=== PATIENT | female | born 1940 | race Caucasian/White ===

== ENCOUNTER 2017-10-17 16:13 | Inpatient (IN) | payer MEDICARE ==
[~2017-10-17] VITALS: Ht 177.8 cm; Wt 85.2 kg
[2017-10-17] VITALS (10 sets, daily range): BP systolic 119–162; BP diastolic 63–79; PULSE 64–128; RESP 16–22; TEMP 98.2–98.3; O2SAT 95–100
[2017-10-17 16:54] LABS: AUTOMATED NEUTROPHIL # 3.6 TH/MM3 (1.8-7.7); BASOPHIL % 0.5 % (0.0-2.0); EOSINOPHIL # 0.1 TH/MM3 (0-0.4); EOSINOPHIL % 2.1 % (0.0-4.0); HEMATOCRIT 41.8 % (35.0-46.0); HEMO FLAGS DIFF FINAL; LYMPH % 35.7 % (9.0-44.0); LYMPHOCYTE # 2.4 TH/MM3 (1.0-4.8); MEAN CELL VOLUME 92.3 FL (80.0-100.0); MEAN CORPUSCULAR HEMOGLOBIN 31.2 PG (27.0-34.0); MEAN CORPUSCULAR HGB CONC 33.8 % (32.0-36.0); MONO % 9.5 % (0.0-8.0); NEUT % 52.2 % (16.0-70.0); PLATELET COUNT 311 TH/MM3 (150-450); RED BLOOD COUNT 4.53 MIL/MM3 (4.00-5.30); RED CELL DISTRIBUTION WIDTH 13.3 % (11.6-17.2); WHITE BLOOD COUNT 6.9 TH/MM3 (4.0-11.0)
--- NOTE | 2017-10-17 16:56 | RADRPT ---
EXAM DATE/TIME: 10/17/2017 16:43 [place] COMPARISON: No previous studies available for comparison. INDICATIONS : Short of breath MEDICAL HISTORY : None. SURGICAL HISTORY : None. ENCOUNTER: Initial ACUITY: 1 day PAIN SCORE: 0/10 LOCATION: chest FINDINGS: PA and lateral views of the chest demonstrate the lungs to be symmetrically aerated without evidence of mass, infiltrate or effusion. The cardiomediastinal contours are unremarkable. Degenerative rodriguez ges thoracic spine. CONCLUSION: Negative for an acute process. Mario Carreon MD FACR on October 17, 2017 at 16:54 Board Certified Radiologist. This report was verified electronically.
[2017-10-17 17:07] LABS: APTT (PATIENT) 27.3 SEC (24.3-30.1); INTERNATIONAL NORMALIZED RATIO 1.1 RATIO; PROTHROMBIN TIME - PATIENT 10.8 SEC (9.8-11.6)
[2017-10-17 17:14] LABS: ANION GAP 9 MEQ/L (5-15); BICARBONATE 24.6 MEQ/L (21.0-32.0); BLOOD UREA NITROGEN 14 MG/DL (7-18); CHLORIDE 107 MEQ/L (98-107); GLOMERULAR FILTRATION RATE 58 ML/MIN (>89); MAGNESIUM 1.8 MG/DL (1.5-2.5); POTASSIUM 3.5 MEQ/L (3.5-5.1); SODIUM (NA) 141 MEQ/L (136-145)
[2017-10-17] MEDS ORDERED: TRIA1CAP6 PO (17:16)
[2017-10-17] MEDS ORDERED: KLOR10TA PO (17:16)
[2017-10-17] MEDS ORDERED: MONT10TA4 PO (17:16)
[2017-10-17] MEDS ORDERED: DULE200A INH (17:16)
[2017-10-17] MEDS ORDERED: LEVO.1 PO (17:16)
[2017-10-17] MEDS ORDERED: FLUT50SP EACH NARE (17:16)
[2017-10-17] MEDS ORDERED: MODA200T12 PO (17:16)
[2017-10-17] MEDS ORDERED: VENL75TA PO (17:16)
[2017-10-17] MEDS ORDERED: VENTAER INH (17:16)
[2017-10-17 17:25] LABS: CREATINE KINASE 66 U/L (26-192)
[2017-10-17] MEDS ORDERED: SODIUM CHLORIDE 0.9% FLUSH 10 ML FLUSH IV FLUSH PRN ×2 (17:30→19:45)
[2017-10-17] MEDS ORDERED: DILTIAZEM HCL 25 MG/5 ML VIAL IV PUSH ONE (17:30)
[2017-10-17] MEDS: DILTIAZEM INJ 125 MG in SODIUM CHLORIDE 0.9% INJ 100 ML IV PRN (18:44)
--- NOTE | 2017-10-17 18:57 | PD ---
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 She states that she had been short of breath on and off for the past few weeks but had plans for routine endoscopy today, she states that when she went to have the endoscopy done she had an EKG showing that her heart rate was very fast and she was immediately referred to the emergency department. Patient does endorse some minimal palpitations on and off for some months, however she states she has no history of age fibrillation or CHF. Has not seen a early head start director, no history of coronary artery disease no stress test or cardiac catheterization. She states her symptoms are mild, context as above, intermittent, associated with some mild shortness of breath. PFSH Past Medical History Asthma: Yes COPD: Yes Diminished Hearing: No Tetanus Vaccination: > 5 Years Influenza Vaccination: No : 2 Para: 2 Miscarriage: 0 : 0 Past Surgical History Hysterectomy: Yes Oral Surgery: Yes (dental extractions) Other Surgery: Yes (bilateral carpel millicent release) Social History Alcohol Use: Yes (occ wine) Tobacco Use: No Substance Use: No Allergies-Medications (Allergen,Severity, Reaction): Coded Allergies: Iodinated Contrast- Oral and IV Dye (Verified Allergy, Severe, Rash, 10/17) Penicillins (Verified Allergy, Severe, Rash, 10/17/17) Sulfa (Sulfonamide Antibiotics) (Verified Allergy, Severe, Hives, 10/17/17 ) adhesive (Verified Allergy, Severe, Rash, 10/17/17) bacitracin (Verified Allergy, Severe, Rash, 10/17/17) lidocaine (Verified Allergy, Severe, Rash, 10/17/17) neomycin (Verified Allergy, Severe, Rash, 10/17/17) polymyxin B (Verified Allergy, Severe, Rash, 10/17/17) pramoxine (Verified Allergy, Severe, Rash, 10/17/17) Reported Meds & Prescriptions Reported Meds & Active Scripts Active Reported Dulera 120 Act Inh (Mometasone-Formoterol 120 Act Inh) 200-5 Mcg/Act Inh 2 Puff INH BID Ventolin Hfa 18 GM Inh (Albuterol Sulfate) 90 Mcg/Act Aer 2 Puff INH Q4-6H PRN Fluticasone Nasal [place] 50 Mcg/Act Naspr 50 Mcg EACH NARE BID 50 mcg/spray Montelukast (Montelukast Sodium) 10 Mg Tab 10 Mg PO HS Dyrenium (Triamterene) 50 Mg Cap 50 Mg PO DAILY Modafinil 200 Mg Tab 200 Mg PO DAILY Klor-Con 10 (Potassium Chloride) 10 Meq Tab 40 Meq PO DAILY Effexor (Venlafaxine HCl) 75 Mg Tab 75 Mg PO Q8H Synthroid (Levothyroxine Sodium) 100 Mcg Tab 100 Mcg PO DAILY Review of Systems Except as stated in HPI: all other systems reviewed are Neg Physical Exam Narrative GENERAL: Well-developed well-nourished no obvious distress SKIN: Focused skin assessment warm/dry. HEAD: Atraumatic. Normocephalic. EYES: Pupils equal and round. No scleral icterus. No injection or drainage. ENT: No nasal bleeding or discharge. Mucous membranes pink and moist. NECK: Trachea midline. No JVD. CARDIOVASCULAR: Irregularly irregular and tachycardic. No murmur appreciated. 2+ bilateral equal pulses in all 4 extremities RESPIRATORY: No accessory muscle use. Clear to auscultation. Breath sounds equal bilaterally. GASTROINTESTINAL: Abdomen soft, non-tender, nondistended. Hepatic and splenic margins not palpable. MUSCULOSKELETAL: No obvious deformities. No clubbing. No cyanosis. No edema. NEUROLOGICAL: Awake and alert. No obvious cranial nerve deficits. Motor grossly within normal limits. Normal speech. PSYCHIATRIC: Appropriate mood and affect; insight and judgment normal. Data Data Last Documented VS Vital Signs Date Time Temp Pulse Resp B/P (MAP) Pulse Ox O2 Delivery O2 Flow Rate FiO2 10/17/17 18:44 110 16 135/79 (97) 100 Room Air 10/17/17 16:15 98.3 Orders Orders Electrocardiogram (10/17/17 16:22) Basic Metabolic Panel (Bmp) (10/17/17 16:22) B-Type Natriuretic Peptide (10/17/17 16:22) Ckmb (Isoenzyme) Profile (10/17/17 16:22) Complete Blood Count With Diff (10/17/17 16:22) Magnesium (Mg) (10/17/17 16:22) Prothrombin Time / Inr (Pt) (10/17/17 16:22) Act Partial Throm Time (Ptt) (10/17/17 16:22) Troponin I (10/17/17 16:22) Chest, Pa & Lat (10/17/17 ) Diltiazem Inj (Cardizem Inj) (10/17/17 17:30) Diltiazem Inj (Cardizem Inj) (10/17/17 17:30) Sodium Chloride 0.9% Flush (Ns Flush) (10/17/17 17:30) Admit Order (Ed Use Only) (10/17/17 ) Labs Laboratory Tests Test 10/17/17 16:35 White Blood Count 6.9 TH/MM3 Red Blood Count 4.53 MIL/MM3 Hemoglobin 14.1 GM/DL Hematocrit 41.8 % Mean Corpuscular Volume 92.3 FL Mean Corpuscular Hemoglobin 31.2 PG Mean Corpuscular Hemoglobin Concent 33.8 % Red Cell Distribution Width 13.3 % Platelet Count 311 TH/MM3 Mean Platelet Volume 7.8 FL Neutrophils (%) (Auto) 52.2 % Lymphocytes (%) (Auto) 35.7 % Monocytes (%) (Auto) 9.5 % Eosinophils (%) (Auto) 2.1 % Basophils (%) (Auto) 0.5 % Neutrophils # (Auto) 3.6 TH/MM3 Lymphocytes # (Auto) 2.4 TH/MM3 Monocytes # (Auto) 0.7 TH/MM3 Eosinophils # (Auto) 0.1 TH/MM3 Basophils # (Auto) 0.0 TH/MM3 CBC Comment DIFF FINAL Differential Comment Prothrombin Time 10.8 SEC Prothromb Time International Ratio 1.1 RATIO Activated Partial Thromboplast Time 27.3 SEC Blood Urea Nitrogen 14 MG/DL Creatinine 0.94 MG/DL Random Glucose 94 MG/DL Calcium Level 9.6 MG/DL Magnesium Level 1.8 MG/DL Sodium Level 141 MEQ/L Potassium Level 3.5 MEQ/L Chloride Level 107 MEQ/L Carbon Dioxide Level 24.6 MEQ/L Anion Gap 9 MEQ/L Estimat Glomerular Filtration Rate 58 ML/MIN Total Creatine Kinase 66 U/L Troponin I LESS THAN 0.02 NG/ML B-Type Natriuretic Peptide 49 PG/ML MDM Medical Decision Making Medical Screen Exam Complete: Yes Emergency Medical Condition: Yes Differential Diagnosis CHF, ACS, AMI, atrial fibrillation, tachycardia. Narrative Course Patient roomed in the emergency department, Cardizem 0.25 mg/kg bolus was given which controlled her heart rate from 140 down to high 70s low 80s. Underlying rhythm is atrial fibrillation. No signs of ischemia on EKG. Troponin negative. Patient while in the emergency department gradually had increasing heart rate, Cardizem drip was ordered. Given new onset atrial fibrillation the patient is being admitted for risk stratification for anticoagulation as well as rule out of coronary artery disease as possible culprit. This was discussed with the patient and she is agreeable. Discussed with Dr. Tilley who will assume care. Diagnosis Primary Impression: Atrial fibrillation with tachycardic ventricular rate Admitting Information Admitting Physician Requests: Admit Condition: Stable Alex Caldwell MD Oct 17, 2017 18:57
[2017-10-17] MEDS ORDERED: ONDANSETRON HCL 4 MG/2 ML VIAL IVP PRN (19:45)
[2017-10-17] MEDS ORDERED: LACTULOSE SYRUP 20 GM/30 ML CUP PO PRN (19:45)
[2017-10-17] MEDS ORDERED: ACETAMINOPHEN 325 MG TAB PO PRN (19:45)
[2017-10-17] MEDS ORDERED: BISACODYL 10 MG SUPP RECTAL PRN (19:45)
[2017-10-17] MEDS ORDERED: NALOXONE HCL 0.4 MG/ML AMP IV PUSH PRN (19:45)
[2017-10-17] MEDS ORDERED: SENNOSIDES 8.6 MG TAB PO PRN (19:45)
[2017-10-17] MEDS ORDERED: MAGNESIUM HYDROXIDE SUSP 30 ML CUP PO PRN (19:45)
[2017-10-17] MEDS: SODIUM CHLORIDE 0.9% FLUSH 10 ML FLUSH IV FLUSH SCH (20:59)
[2017-10-17] MEDS: DOCUSATE SODIUM 50 MG/SENNA 8.6 MG TAB PO SCH (21:00)
[2017-10-17] MEDS: HEPARIN SODIUM - SQ 10,000 UNITS/ML VIAL SQ SCH (21:07)
[2017-10-17 23:15] LABS: CREATINE KINASE 81 U/L (26-192)
[2017-10-18] VITALS (20 sets, daily range): BP systolic 103–142; BP diastolic 56–100; PULSE 56–75; RESP 18–20; TEMP 97.8–98.6; O2SAT 95–98
--- NOTE | 2017-10-18 04:42 | HHI.HP ---
[facility] Ellen Albarado D.O. Admission Diagnosis Afib RVR, new onset. 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 fib with RVR. The patient has no history of A. fib. She was scheduled for a colonoscopy earlier today when an EKG showed A. fib with RVR. EKG done in the emergency department showed a heart rate of 118 with atrial fibrillation with RVR, no ST segment elevations or depressions. Initial troponin negative. Patient states she has had intermittent palpitations which she attributed to anxiety. She also states she has had intermittent shortness of breath over the past few weeks. She denies chest pain, edema and systemic symptoms such as fever/chills. Review of Systems Denies fever or chills Denies blurry vision, otorrhea, rhinorrhea Denies sore throat and cough No chest pain, Positive palpitations and shortness of breath No abdominal pain Denies constipation/diarrhea/nausea/vomiting Denies muscle pain/weakness No rashes Past Family Social History Past Medical History COPD Anxiety Hypothyroidism Hypertension Allergies: Coded Allergies: Iodinated Contrast- Oral and IV Dye (Verified Allergy, Severe, Rash, 10/17) Penicillins (Verified Allergy, Severe, Rash, 10/17/17) Sulfa (Sulfonamide Antibiotics) (Verified Allergy, Severe, Hives, 10/17/17 ) adhesive (Verified Allergy, Severe, Rash, 10/17/17) bacitracin (Verified Allergy, Severe, Rash, 10/17/17) lidocaine (Verified Allergy, Severe, Rash, 10/17/17) neomycin (Verified Allergy, Severe, Rash, 10/17/17) polymyxin B (Verified Allergy, Severe, Rash, 10/17/17) pramoxine (Verified Allergy, Severe, Rash, 10/17/17) Family History Mother with CAD, CVA Social History Where alcohol. Denies tobacco, illicit drugs. Physical Exam Vital Signs Vital Signs Date Time Temp Pulse Resp B/P (MAP) Pulse Ox O2 Delivery O2 Flow Rate FiO2 10/18/17 00:00 Room Air 10/18/17 00:00 73 10/18/17 00:00 98.6 74 18 103/56 (72) 96 10/17/17 21:42 66 10/17/17 21:37 10/17/17 21:30 98.2 69 18 150/73 (98) 100 10/17/17 21:30 Room Air 10/17/17 21:17 74 18 129/70 (89) 98 Room Air 10/17/17 20:00 98 10/17/17 20:00 67 18 119/63 (81) 95 Room Air 10/17/17 18:44 110 16 135/79 (97) 100 Room Air 10/17/17 18:44 120 135/79 10/17/17 17:31 85 18 121/76 (91) 100 Room Air 10/17/17 17:06 128 22 127/76 (93) 98 Room Air 10/17/17 16:15 98.3 87 18 146/79 (101) 95 Physical Exam GENERAL: female lying in bed SKIN: No rashes, ecchymoses or lesions. Cool and dry. HEAD: Atraumatic. Normocephalic. No temporal or scalp tenderness. EYES: Pupils equal round and reactive. Extraocular motions intact. No scleral icterus. No injection or drainage. ENT: Nose without bleeding, purulent drainage or septal hematoma. Throat without erythema, tonsillar hypertrophy or exudate. Uvula midline. Airway patent. NECK: Trachea midline. No JVD or lymphadenopathy. Supple, nontender, no meningeal signs. CARDIOVASCULAR: Regular rate and rhythm without murmurs, gallops, or rubs. RESPIRATORY: Clear to auscultation. Breath sounds equal bilaterally. No wheezes , rales, or rhonchi. GASTROINTESTINAL: Abdomen soft, non-tender, nondistended. No hepato-splenomegaly , or palpable masses. No guarding. MUSCULOSKELETAL: Extremities without clubbing, cyanosis, or edema. No joint tenderness, effusion, or edema noted. No calf tenderness. NEUROLOGICAL: Awake and alert. Cranial nerves II through XII intact. Motor and sensory grossly within normal limits. Normal speech. Laboratory Laboratory Tests Test 10/17/17 16:35 10/17/17 22:20 White Blood Count 6.9 Red Blood Count 4.53 Hemoglobin 14.1 Hematocrit 41.8 Mean Corpuscular Volume 92.3 Mean Corpuscular Hemoglobin 31.2 Mean Corpuscular Hemoglobin Concent 33.8 Red Cell Distribution Width 13.3 Platelet Count 311 Mean Platelet Volume 7.8 Neutrophils (%) (Auto) 52.2 Lymphocytes (%) (Auto) 35.7 Monocytes (%) (Auto) 9.5 Eosinophils (%) (Auto) 2.1 Basophils (%) (Auto) 0.5 Neutrophils # (Auto) 3.6 Lymphocytes # (Auto) 2.4 Monocytes # (Auto) 0.7 Eosinophils # (Auto) 0.1 Basophils # (Auto) 0.0 CBC Comment DIFF FINAL Differential Comment Prothrombin Time 10.8 Prothromb Time International Ratio 1.1 Activated Partial Thromboplast Time 27.3 Blood Urea Nitrogen 14 Creatinine 0.94 Random Glucose 94 Calcium Level 9.6 Magnesium Level 1.8 Sodium Level 141 Potassium Level 3.5 Chloride Level 107 Carbon Dioxide Level 24.6 Anion Gap 9 Estimat Glomerular Filtration Rate 58 Total Creatine Kinase 66 81 Troponin I LESS THAN 0.02 LESS THAN 0.02 B-Type Natriuretic Peptide 49 Result Diagram: 10/17/17 1635 10/17/17 163 Caprini VTE Risk Assessment Caprini VTE Risk Assessment: Mod/High Risk (score >= 2) Caprini Risk Assessment Model Point Value = 1 Point Value = 2 Point Value = 3 Point Value = 5 Age 41-60 Minor surgery BMI > 25 kg/m2 Swollen legs Varicose veins or History of unexplained or recurrent spontaneous Oral contraceptives or hormone replacement Sepsis (< 1 month) Serious lung disease, including pneumonia (< 1 month) Abnormal pulmonary function Acute myocardial infarction Congestive heart failure (< 1 month) History of inflammatory bowel disease Medical patient at bed rest Age 61-74 Arthroscopic surgery Major open surgery (> 45 min) Laparoscopic surgery (> 45 min) Malignancy Confined to bed (> 72 hours) Immobilizing plaster cast Central venous access Age >= 75 History of VTE Family history of VTE Factor V Leiden Prothrombin [id number] Lupus anticoagulant Anticardiolipin antibodies Elevated serum homocysteine Heparin-induced thrombocytopenia Other congenital or acquired thrombophilia Stroke (< 1 month) Elective arthroplasty Hip, pelvis, or leg fracture Acute spinal cord injury (< 1 month) Prophylaxis Regimen Total Risk Factor Score Risk Level Prophylaxis Regimen 0-1 Low Early ambulation 2 Moderate Order ONE of the following: *Sequential Compression Device (SCD) *Heparin 5000 units SQ BID 3-4 Higher Order ONE of the following medications: *Heparin 5000 units SQ TID *Enoxaparin/Lovenox 40 mg SQ daily (WT < 150 kg, CrCl > 30 mL/min) *Enoxaparin/Lovenox 30 mg SQ daily (WT < 150 kg, CrCl > 10-29 mL/min) *Enoxaparin/Lovenox 30 mg SQ BID (WT < 150 kg, CrCl > 30 mL/min) AND/OR *Sequential Compression Device (SCD) 5 or more Highest Order ONE of the following medications: *Heparin 5000 units SQ TID (Preferred with Epidurals) *Enoxaparin/Lovenox 40 mg SQ daily (WT < 150 kg, CrCl > 30 mL/min) *Enoxaparin/Lovenox 30 mg SQ daily (WT < 150 kg, CrCl > 10-29 mL/min) *Enoxaparin/Lovenox 30 mg SQ BID (WT < 150 kg, CrCl > 30 mL/min) AND *Sequential Compression Device (SCD) Assessment and Plan Assessment and Plan Assessment/plan: 1. New onset atrial fibrillation with RVR EKG showed atrial fibrillation with RVR, no ST elevations/depressions, reviewed by Diltiazem monique ACS rule out pending given new onset Cardiology consulted, appreciate recommendations TSH pending 2. Hypothyroidism Continue home Synthroid 3. Hypertension Continue home triamterene 4. COPD Continue Dulera 5. Anxiety Continue Effexor FEN Heart healthy diet Electrolytes: monitor and replete prn Heparin Physician Certification 2 Midnight Certification Type: Admission for Inpatient Services Order for Inpatient Services The services are ordered in accordance with Medicare regulations or non- Medicare payer requirements, as applicable. In the case of services not specified as inpatient-only, they are appropriately provided as inpatient services in accordance with the 2-midnight benchmark. Estimated LOS (days): 2 2 days is the estimated time the patient will need to remain in the hospital, assuming treatment plan goals are met and no additional complications. Post-Hospital Plan: Not yet determined Liliane Tilley MD Oct 18, 2017 04:42
[2017-10-18 06:28] LABS: AUTOMATED NEUTROPHIL # 2.4 TH/MM3 (1.8-7.7); BASOPHIL % 0.7 % (0.0-2.0); EOSINOPHIL # 0.2 TH/MM3 (0-0.4); EOSINOPHIL % 2.7 % (0.0-4.0); HEMATOCRIT 36.8 % (35.0-46.0); HEMO FLAGS DIFF FINAL; LYMPH % 43.4 % (9.0-44.0); LYMPHOCYTE # 2.5 TH/MM3 (1.0-4.8); MEAN CELL VOLUME 91.6 FL (80.0-100.0); MEAN CORPUSCULAR HEMOGLOBIN 31.3 PG (27.0-34.0); MEAN CORPUSCULAR HGB CONC 34.1 % (32.0-36.0); MONO % 11.5 % (0.0-8.0); NEUT % 41.7 % (16.0-70.0); PLATELET COUNT 272 TH/MM3 (150-450); RED BLOOD COUNT 4.01 MIL/MM3 (4.00-5.30); RED CELL DISTRIBUTION WIDTH 13.1 % (11.6-17.2); WHITE BLOOD COUNT 5.8 TH/MM3 (4.0-11.0)
[2017-10-18] MEDS: HEPARIN SODIUM - SQ 10,000 UNITS/ML VIAL SQ SCH ×2 (06:37→14:00)
[2017-10-18] MEDS: LEVOTHYROXINE SODIUM 100 MCG TAB PO SCH (06:38)
[2017-10-18 07:06] LABS: ANION GAP 9 MEQ/L (5-15); BICARBONATE 26.5 MEQ/L (21.0-32.0); BLOOD UREA NITROGEN 18 MG/DL (7-18); CHLORIDE 109 MEQ/L (98-107); CREATINE KINASE 94 U/L (26-192); GLOMERULAR FILTRATION RATE 60 ML/MIN (>89); SODIUM (NA) 144 MEQ/L (136-145)
[2017-10-18 07:08] LABS: POTASSIUM 2.7 MEQ/L (3.5-5.1)
[2017-10-18] MEDS ORDERED: POTASSIUM CHLORIDE 20 MEQ CONTROLLED RELEASE TAB PO ONE (08:15)
[2017-10-18] MEDS ORDERED: diphenhydrAMINE HCL 50 MG CAP PO ONE (08:15)
[2017-10-18] MEDS: SODIUM CHLORIDE 0.9% FLUSH 10 ML FLUSH IV FLUSH SCH ×2 (08:17→21:18)
[2017-10-18] MEDS: DOCUSATE SODIUM 50 MG/SENNA 8.6 MG TAB PO SCH ×2 (08:18→21:00)
[2017-10-18] MEDS: MODAFINIL 200 MG TAB PO SCH (08:19)
[2017-10-18] MEDS: VENLAFAXINE HCL XR 75 MG CAP PO SCH (08:19)
[2017-10-18] MEDS ORDERED: MOMETASONE FORMOTEROL INH SCH (09:00)
[2017-10-18] MEDS ORDERED: TRIAMTERENE 50 MG PO SCH (09:00)
[2017-10-18] MEDS: POTASSIUM CHLORIDE 20 MEQ CONTROLLED RELEASE TAB PO SCH (10:00)
--- NOTE | 2017-10-18 12:36 | EKG ---
Date Performed: 10/17/2017 Time Performed: 16:29:49 PTAGE: 77 years EKG: ATRIAL FIBRILLATION WITH RAPID VENTRICULAR RESPONSE BORDERLINE LEFT AXIS DEVIATION NONSPECI FIC ST & T-WAVE ABNORMALITY ABNORMAL RHYTHM ECG NO PREVIOUS TRACING DOCTOR: Philippe Bryan Interpretating Date/Time 10/18/2017 12:35:47
--- NOTE | 2017-10-18 13:01 | EKG ---
Date Performed: 10/18/2017 Time Performed: 04:41:28 PTAGE: 77 years EKG: Sinus rhythm Leftward axis Lateral T wave changes are nonspecific Borderline ECG PREVIOUS TRACING : 10/17/2017 22.18 Compared to prior tracing no significant change DOCTOR: Philippe Bryan Interpretating Date/Time 10/18/2017 12:59:19
--- NOTE | 2017-10-18 14:24 | EKG ---
Date Performed: 10/17/2017 Time Performed: 22:18:55 PTAGE: 77 years EKG: Sinus rhythm MARKED LEFT AXIS DEVIATION ABNORMAL ECG Compared to PREVIOUS TRACING , the rate has slowed. PREVIOUS TRACIN10/17/2017 16.29 DOCTOR: Philippe Bryan Interpretating Date/Time 10/18/2017 14:23:13
[2017-10-18] MEDS: DILTIAZEM INJ 125 MG in SODIUM CHLORIDE 0.9% INJ 100 ML IV PRN (17:57)
--- NOTE | 2017-10-18 19:31 | HHI.PR ---
Subjective Remarks Denies cp/sob. Denies palpitations. Objective Vitals Vital Signs Date Time Temp Pulse Resp B/P (MAP) Pulse Ox O2 Delivery O2 Flow Rate FiO2 10/18/17 17:57 99 124/69 10/18/17 16:11 98.3 71 20 124/70 (88) 97 10/18/17 16:00 70 10/18/17 12:00 64 10/18/17 11:51 97.8 70 20 129/56 (80) 98 10/18/17 08:42 96 21 10/18/17 08:25 Room Air 10/18/17 08:08 98.0 63 20 142/100 (114) 97 10/18/17 08:00 56 10/18/17 06:00 66 10/18/17 05:00 64 10/18/17 04:00 Room Air 10/18/17 04:00 98.4 62 20 128/59 (82) 97 10/18/17 04:00 69 10/18/17 03:00 66 10/18/17 02:00 64 10/18/17 01:00 66 10/18/17 00:00 Room Air 10/18/17 00:00 73 10/18/17 00:00 98.6 74 18 103/56 (72) 96 10/17/17 23:00 64 10/17/17 22:00 66 10/17/17 21:42 66 10/17/17 21:37 10/17/17 21:30 98.2 69 18 150/73 (98) 100 10/17/17 21:30 Room Air 10/17/17 21:17 74 18 129/70 (89) 98 Room Air 10/17/17 20:00 98 10/17/17 20:00 67 18 119/63 (81) 95 Room Air I/O 10/17/17 10/17/17 10/17/17 10/18/17 10/18/17 10/18/17 07:00 15:00 23:00 07:00 15:00 23:00 Intake Total 300 ml 945 ml Output Total 400 ml Balance 300 ml 545 ml Intake Oral 300 ml 840 ml IV Total 105 ml Output Urine Total 400 ml # Voids 2 Result Diagram: 10/18/17 0508 10/18/17 0445 Imaging Last Impressions Chest X-Ray 10/17/17 0000 Signed Impressions: Service Date/Time: Tuesday, October 17, 2017 16:43 - CONCLUSION: Negative for an acute process. Mario Carreon MD FACR Objective Remarks AAOx3 NAD Clear lungs BL S1S2 RRR, no MRG no edema in extremities no jvd Medications and IVs Current Medications Medications (Trade) Dose Ordered Sig/Darell Route Start Time Stop Time Status Last Admin (NS Flush) 2 ml UNSCH PRN IV FLUSH 10/17/17 19:45 (NS Flush) 2 ml BID IV FLUSH 10/17/17 21:00 (Tylenol) 650 mg Q4H PRN PO 10/17/17 19:45 (Zofran Inj) 4 mg Q6H PRN IVP 10/17/17 19:45 (Heparin Inj) 5,000 units Q8H SQ 10/17/17 22:00 10/18/17 06:37 (Narcan Inj) 0.4 mg UNSCH PRN IV PUSH 10/17/17 19:45 (Rosalie-Colace) 1 tab BID PO 10/17/17 21:00 (Milk Of Magnesia Liq) 30 ml Q12H PRN PO 10/17/17 19:45 (Senokot) 17.2 mg Q12H PRN PO 10/17/17 19:45 (Dulcolax Supp) 10 mg DAILY PRN RECTAL 10/17/17 19:45 (Lactulose Liq) 30 ml DAILY PRN PO 10/17/17 19:45 (Synthroid) 100 mcg DAILY@0600 PO 10/18/17 06:00 10/18/17 06:38 (Provigil) 200 mg DAILY PO 10/18/17 09:00 10/18/17 08:19 (Singulair) 10 mg HS PO 10/18/17 21:00 (KCl) 40 meq DAILY PO 10/18/17 09:00 10/18/17 10:00 Patient Own Medication PT OWN NON-FORMULARY D... BID INH 10/18/17 09:00 Future Hold Patient Own Medication PT OWN MED: NON-FORMULARY D... DAILY PO 10/18/17 09:00 Future Hold (Effexor Xr) 225 mg DAILY PO 10/18/17 09:00 10/18/17 08:19 (Xarelto) 20 mg Q24H PO 10/18/17 20:00 A/P Problem List: (1) New onset atrial fibrillation ICD Code: I48.91 - Unspecified atrial fibrillation Plan: The patient was admitted to the intensive care unit, monitor on telemetry , started on IV Cardizem drip with subsequent conversion to normal sinus rhythm. Discussed with Dr. arroyo from cardiology recommends starting the patient on Xarelto for thrombin embolism prophylaxis and also starting the patient on low- dose beta cleopatra with 25 mg of metoprolol tartrate twice a day. The patient stable to maybe discharge in a.m. (2) Hypothyroidism ICD Code: E03.9 - Hypothyroidism, unspecified Plan: Continue Synthroid. TSH obtained and within normal range at 0.374. (3) HTN (hypertension) ICD Code: I10 - Essential (primary) hypertension Plan: BP seems stable. Patient on triamterene, DC given hypokalemia. Patient will be started on metoprolol - monitor vital signs. (4) COPD (chronic obstructive pulmonary disease) ICD Code: J44.9 - Chronic obstructive pulmonary disease, unspecified Plan: Continue Dulera. (5) Anxiety ICD Code: F41.9 - Anxiety disorder, unspecified Plan: Continue Effexor, patient seems to be slightly anxious. (6) Headache ICD Code: R51 - Headache Plan: Will Rx tylenol as needed. Problem Qualifiers (1) Headache: Dexter Carmona MD Oct 18, 2017 19:31
[2017-10-18] MEDS ORDERED: RIVAROXABAN 20 MG TAB PO SCH (20:00)
[2017-10-18] MEDS ORDERED: ACETAMINOPHEN 325 MG TAB PO PRN (20:15)
[2017-10-18] MEDS ORDERED: MONTELUKAST SODIUM 10 MG TAB PO SCH (21:00)
[2017-10-18] MEDS: METOPROLOL TARTRATE 25 MG TAB PO SCH (21:17)
--- NOTE | 2017-10-18 22:07 | MB ---
cc: WOLFGANG ARGUETA MD DATE OF CONSULTATION 10/18/17 HISTORY OF PRESENT ILLNESS A 77-year-old white female who was scheduled for colonoscopy yesterday and was she arrived for the procedure she was found to be in atrial fibrillation with rapid ventricular response with a heart rate of 118. She has previous history of intermittent palpitations which she felt were related to anxiety. She has not had any chest pain. She has had occasional dyspnea. PAST MEDICAL HISTORY 1. COPD, 2. Hypothyroidism, 3. Hypertension, 4. Anxiety ALLERGIES CONTRAST PENICILLIN SULFA ADHESIVE BACITRACIN LIDOCAINE NEOMYCIN POLYMYXIN B PRAMOXINE MEDICATIONS At home included. 1. Albuterol. 2. Venlafaxine 3. Modafinil 4. Potassium chloride. 5. Triamterene 6. Dulera 7. Montelucast. 8. Fluticasone nasal spray 9. Levothyroxine. SOCIAL HISTORY The patient does not smoke. She drinks alcohol occasionally. FAMILY HISTORY Positive for stroke and heart disease in her mother. REVIEW OF SYSTEMS Otherwise negative. PHYSICAL EXAMINATION VITAL SIGNS: 124/70, pulse 70 and regular. HEENT: Negative. 2+ carotid upstraokes. No bruits. LUNGS: Clear. HEART: Regular with no murmur, gallop or rub. Abdomen: Soft, no bruits. EXTREMITIES: Without edema. + distal pulses. NEUROLOGIC: Grossly nonfocal. CARDIOLOGY STUDIES EKG was reviewed and showed atrial fibrillation with rapid ventricular response, left axis and nonspecific ST-T changes. Telemetry now shows sinus rhythm. LABORATORY DATA Hemoglobin 12.5, potassium 3.5 and 2.7, creatinine 0.9, troponin negative x3. The BNP 49. TSH 0.374 (low normal) DIAGNOSIS 1. Atrial fibrillation with rapid ventricular response. 2. Hypertension 3. Hypothyroidism. 4. COPD 5. Anxiety. DISPOSITION Ms. Jaime was found to have evidence of paroxysmal atrial fibrillation with rapid ventricular response. She most likely has had previous episodes of atrial fibrillation which she attributed to anxiety. We will discontinue heparin and start her on Xarelto 20 mg daily. We will initiate therapy with low-dose beta cleopatra. I will follow her for cardiology during her hospitalization. I will see her back for followup in our office after discharge as well. MD ROSLYN Bucio/ /8:08 PM /9:46 PM [id number]
[2017-10-18] MEDS ORDERED: hydrOXYzine HCL 25 MG TAB PO PRN (23:00)
[2017-10-19] VITALS (15 sets, daily range): BP systolic 92–110; BP diastolic 55–62; PULSE 54–77; RESP 16–21; TEMP 98.4–98.6; O2SAT 95–98
[2017-10-19] MEDS: LEVOTHYROXINE SODIUM 100 MCG TAB PO SCH (05:37)
[2017-10-19 06:09] LABS: ANION GAP 7 MEQ/L (5-15); AST (GOT) 19 U/L (15-37); BICARBONATE 26.3 MEQ/L (21.0-32.0); BLOOD UREA NITROGEN 18 MG/DL (7-18); CHLORIDE 110 MEQ/L (98-107); GLOMERULAR FILTRATION RATE 68 ML/MIN (>89); POTASSIUM 3.3 MEQ/L (3.5-5.1); SODIUM (NA) 143 MEQ/L (136-145)
[2017-10-19 06:12] LABS: ALKALINE PHOSPHATASE 52 U/L (45-117); ALT (GPT) 19 U/L (10-53); TOTAL BILIRUBIN ADULT 0.4 MG/DL (0.2-1.0)
[2017-10-19 06:19] LABS: AUTOMATED NEUTROPHIL # 3.1 TH/MM3 (1.8-7.7); BASOPHIL % 0.7 % (0.0-2.0); EOSINOPHIL # 0.3 TH/MM3 (0-0.4); EOSINOPHIL % 4.3 % (0.0-4.0); HEMATOCRIT 37.7 % (35.0-46.0); HEMO FLAGS DIFF FINAL; LYMPHOCYTE # 2.4 TH/MM3 (1.0-4.8); MEAN CELL VOLUME 92.4 FL (80.0-100.0); MEAN CORPUSCULAR HEMOGLOBIN 31.9 PG (27.0-34.0); MEAN CORPUSCULAR HGB CONC 34.5 % (32.0-36.0); MONO % 9.8 % (0.0-8.0); NEUT % 48.2 % (16.0-70.0); PLATELET COUNT 290 TH/MM3 (150-450); RED BLOOD COUNT 4.08 MIL/MM3 (4.00-5.30); RED CELL DISTRIBUTION WIDTH 13.4 % (11.6-17.2); WHITE BLOOD COUNT 6.5 TH/MM3 (4.0-11.0)
[2017-10-19] MEDS: MODAFINIL 200 MG TAB PO SCH (08:18)
[2017-10-19] MEDS: METOPROLOL TARTRATE 25 MG TAB PO SCH (08:18)
[2017-10-19] MEDS: POTASSIUM CHLORIDE 20 MEQ CONTROLLED RELEASE TAB PO SCH ×2 (08:19→08:24)
[2017-10-19] MEDS: VENLAFAXINE HCL XR 75 MG CAP PO SCH (08:19)
[2017-10-19] MEDS: DOCUSATE SODIUM 50 MG/SENNA 8.6 MG TAB PO SCH (08:19)
[2017-10-19] MEDS: SODIUM CHLORIDE 0.9% FLUSH 10 ML FLUSH IV FLUSH SCH (08:20)
--- NOTE | 2017-10-19 11:10 | HHI.PR ---
Subjective Remarks Feels improved significantly. With multiple questions. All answered to best of my ability. No chest pain, palpitations, lightheadedness, sob. No n/v/d/c. No diaphoresis. Wants to go home, cleared by cardio to follow up as OP. Objective Vitals Vital Signs Date Time Temp Pulse Resp B/P (MAP) Pulse Ox O2 Delivery O2 Flow Rate FiO2 10/19/17 09:22 98 10/19/17 05:54 70 10/19/17 05:00 60 10/19/17 04:00 98.4 75 18 92/55 (67) 97 10/19/17 04:00 77 10/19/17 04:00 Room Air 10/19/17 03:25 97 10/19/17 03:00 68 10/19/17 02:00 70 10/19/17 01:00 62 10/19/17 00:00 58 10/19/17 00:00 98.4 62 18 95/55 (68) 95 10/19/17 00:00 Room Air 10/18/17 23:09 96 10/18/17 23:00 64 10/18/17 22:00 60 10/18/17 21:00 70 10/18/17 20:00 Room Air 10/18/17 20:00 75 10/18/17 20:00 98.2 74 18 122/59 (80) 95 10/18/17 19:00 74 10/18/17 17:57 99 124/69 10/18/17 16:11 98.3 71 20 124/70 (88) 97 10/18/17 16:00 70 10/18/17 12:00 64 10/18/17 11:51 97.8 70 20 129/56 (80) 98 I/O 10/18/17 10/18/17 10/18/17 10/19/17 10/19/17 10/19/17 06:59 14:59 22:59 06:59 14:59 22:59 Intake Total 945 ml 400 ml Output Total 400 ml Balance 545 ml 400 ml Intake Oral 840 ml 400 ml IV Total 105 ml Output Urine Total 400 ml # Voids 2 3 Result Diagram: 10/19/17 0408 10/19/17 0408 Imaging Last Impressions Chest X-Ray 10/17/17 0000 Signed Impressions: Service Date/Time: Tuesday, October 17, 2017 16:43 - CONCLUSION: Negative for an acute process. Mario Carreon MD FACR Objective Remarks GENERAL: Pleasant 77 yo F, appears in nad. CARDIOVASCULAR: irregularly irregular rate and rhythm. RESPIRATORY: No accessory muscle use. Clear to auscultation. Breath sounds equal bilaterally. GASTROINTESTINAL: Abdomen soft, non-tender, nondistended. Hepatic and splenic margins not palpable. MUSCULOSKELETAL: Extremities without clubbing, cyanosis, or edema. No obvious deformities. NEUROLOGICAL: Awake and alert. No obvious cranial nerve deficits. Motor grossly within normal limits. Five out of 5 muscle strength in the arms and legs. Normal speech. PSYCHIATRIC: Appropriate mood and affect; insight and judgment normal. A/P Problem List: (1) New onset atrial fibrillation ICD Code: I48.91 - Unspecified atrial fibrillation (2) Hypothyroidism ICD Code: E03.9 - Hypothyroidism, unspecified (3) HTN (hypertension) ICD Code: I10 - Essential (primary) hypertension (4) COPD (chronic obstructive pulmonary disease) ICD Code: J44.9 - Chronic obstructive pulmonary disease, unspecified (5) Anxiety ICD Code: F41.9 - Anxiety disorder, unspecified (6) Headache ICD Code: R51 - Headache Assessment and Plan (1) New onset atrial fibrillation ICD Code: I48.91 - Unspecified atrial fibrillation Plan: The patient was admitted to the intensive care unit, monitor on telemetry , started on IV Cardizem drip with subsequent conversion to normal sinus rhythm. Discussed with Dr. arroyo from cardiology recommends starting the patient on Xarelto for thrombin embolism prophylaxis and also starting the patient on low- dose beta cleopatra with 25 mg of metoprolol tartrate twice a day. (2) Hypothyroidism ICD Code: E03.9 - Hypothyroidism, unspecified Plan: Continue Synthroid. TSH obtained and within normal range at 0.374. (3) HTN (hypertension) ICD Code: I10 - Essential (primary) hypertension Plan: BP seems stable. Patient on triamterene, DC given hypokalemia. Patient will be started on metoprolol - monitor vital signs. (4) COPD (chronic obstructive pulmonary disease) ICD Code: J44.9 - Chronic obstructive pulmonary disease, unspecified Plan: Continue Dulera. (5) Anxiety ICD Code: F41.9 - Anxiety disorder, unspecified Plan: Continue Effexor, patient seems to be slightly anxious. (6) Headache ICD Code: R51 - Headache Plan: Will Rx tylenol as needed. DC today Discharge Planning DC home to f/u as OP with PCP and consultants Meds per med reconciliations Activity ad shanna as tolerated Diet: healthy heart diet Problem Qualifiers (1) Headache: Goldie Spann MD Oct 19, 2017 11:10
[2017-10-19] MEDS ORDERED: XARE20TA PO (11:12)
[2017-10-19] MEDS ORDERED: METO25TA3 PO (11:12)
--- NOTE | 2017-10-19 11:13 | HHI.DCPOC ---
Discharge Care Plan Additional Problems Irregular heart rate - atrial fibrillation Goals to Promote Your Health * To prevent worsening of your condition and complications * To maintain your health at the optimal level Directions to Meet Your Goals Take your medications as prescribed Follow your dietary instruction Follow activity as directed Keep your appointments as scheduled Take your immunizations and boosters as scheduled If your symptoms worsen call your PCP, if no PCP go to Urgent Care Center or Emergency Room Smoking is Dangerous to Your Health. Avoid second hand smoke Call the 24-hour hour crisis hotline for domestic abuse at Goldie Spann MD Oct 19, 2017 11:13
== END 2017-10-19 13:02 | disposition home or self-care (01) | DRG 310 ==
LOC: NEPC 16:13 → NEDA 19:25 → N03B 21:23
PROVIDERS: ADMIT Hospitalist; ATTEND Hospitalist
DX: I48.0 Paroxysmal atrial fibrillation (principal); J44.9 Chronic obstructive pulmonary disease, unspecified; F41.9 Anxiety disorder, unspecified; I10 Essential (primary) hypertension; E03.9 Hypothyroidism, unspecified; R51 Headache; E87.6 Hypokalemia
CPT/HCPCS: 71020; 80048; 80053; 82550; 83735; 83880; 84100; 84443; 84484; 85025; 85610; 85730; 93005; 96374; J1644; Q0163